=== PATIENT | male | born 1970 | race Two or more races ===

== ENCOUNTER 2019-09-02 00:51 | Emergency (ER) | payer SELFPAY ==
[~2019-09-02] VITALS: Ht 175.3 cm; Wt 95.0 kg
[2019-09-02 00:53] VITALS: BP 131/96
== END 2019-09-02 01:21 | disposition home or self-care (01) ==
LOC: ER 00:53
DX: R53.83 Other fatigue (principal); Z59.0 Homelessness
CPT/HCPCS: 99283